=== PATIENT | male | born 1955 | race African-American/Black ===

== ENCOUNTER 2018-11-21 08:11 | Emergency (ER) | payer SELFPAY ==
[~2018-11-21] VITALS: Ht 177.8 cm; Wt 72.6 kg
[2018-11-21 09:10] VITALS: BP 158/98
[2018-11-21] MEDS ORDERED: KETOROLAC TROMETH 60MG/2ML VIAL IM ONE (09:15)
[2018-11-21 09:59] LABS: Urine Bacteria NONE SEEN /hpf (None Seen); Urine Blood Negative /uL (Negative); Urine Mucus FEW (None Seen); Urine Specific Gravity 1.018 (1.001-1.035); Urine WBC 1 /hpf (0 - 3)
== END 2018-11-21 09:57 | disposition home or self-care (01) ==
LOC: ER 08:11 → EDBD 08:11 → ER 09:57
DX: N28.1 Cyst of kidney, acquired (principal); Z86.73 Personal history of transient ischemic attack (TIA), and cerebral infarction without residual deficits
CPT/HCPCS: 72100; 74176; 81001; 96372; 99284; J1885

== ENCOUNTER 2021-03-10 22:00 | Emergency (ER) | payer OTHER, MEDICAID ==
[~2021-03-10] VITALS: Ht 170.2 cm; Wt 54.4 kg
[2021-03-10] MEDS ORDERED: PANTOPRAZOLE 40 MG/10 ML VIAL INJ IV ONE (23:00)
[2021-03-10 23:57] LABS: Basophils # (auto) 0 10 ^3/uL (0-0.2); Basophils % (auto) 0.5 % (0.0-2.0); Eosinophils # (auto) 0 10 ^3/uL (0-0.8); Eosinophils % (auto) 0.6 % (0.0-7.0); Hematocrit 35.6 % (41.0-53.0); Lymphocytes # (auto) 1.4 10 ^3/uL (0.4-5.4); Lymphocytes % (auto) 18.4 % (10.0-50.0); Mean Corpuscular Hemoglobin 27.3 pg (28.0-32.0); Mean Corpuscular Hgb Conc. 33.7 g/dL (32.0-36.0); Mean Corpuscular Volume 81.2 fL (80.0-100.0); Monocytes % (auto) 12.9 % (0.0-12.0); Neutrophils # (auto) 5.3 10 ^3/uL (1.6-8.6); Neutrophils % (auto) 67.6 % (37.0-80.0); Nucleated Red Blood Cells % 0.1 %; Red Blood Cells 4.39 10^6/uL (4.5-5.90); Red Cell Distribution Width 14.2 % (11.8-14.3); White Blood Cell 7.9 10^3/uL (4.4-10.8)
[2021-03-11 00:13] LABS: INR 1.13 (0.9-1.15)
[2021-03-11 00:21] LABS: Albumin 2.6 g/dL (3.4-5.0); Calcium 8.7 mg/dL (8.5-10.1); Magnesium 1.9 mg/dL (1.6-2.6); Potassium 3.8 mmol/L (3.5-5.1)
[2021-03-11 00:32] LABS: BUN/Creatinine Ratio 45.2; Bilirubin, Total 0.3 mg/dL (0.2-1.0); Total Protein 6.8 g/dL (6.4-8.2)
[2021-03-11] MEDS ORDERED: SODIUM CHLORIDE 0.9% 1,000 ML IV ONE (01:00)
[2021-03-11 07:45] VITALS: BP 128/81
== END 2021-03-11 08:06 | disposition home or self-care (01) ==
LOC: ER 22:00 → EDBD 22:00 → EDUNIT# 22:00 → ER 03-11 08:06
DX: K92.2 Gastrointestinal hemorrhage, unspecified (principal); K92.0 Hematemesis; G30.9 Alzheimer's disease, unspecified; F02.80 Dementia in other diseases classified elsewhere, unspecified severity, without behavioral disturbance, psychotic disturbance, mood disturbance, and anxiety; Z20.822 Contact with and (suspected) exposure to COVID-19; Z86.73 Personal history of transient ischemic attack (TIA), and cerebral infarction without residual deficits
CPT/HCPCS: 36415; 80053; 83735; 85025; 85610; 86850; 86900; 86901; 87426; 93005; 96361; 96374; 99285; C9113; J7030

== ENCOUNTER 2022-05-04 05:52 | Emergency (ER) | payer OTHER, MEDICAID ==
[~2022-05-04] VITALS: Ht 165.1 cm; Wt 60.0 kg
[2022-05-04] MEDS ORDERED: ACETAMINOPHEN 500 MG TAB PO ONE (07:30)
[2022-05-04 09:15] VITALS: BP 150/96
[2022-05-04] MEDS ORDERED: CYCL-837 PO (09:22)
== END 2022-05-04 09:30 | disposition home or self-care (01) ==
LOC: ER 05:52 → EDBD 05:52 → ER 09:24
DX: S13.9XXA Sprain of joints and ligaments of unspecified parts of neck, initial encounter (principal); S00.93XA Contusion of unspecified part of head, initial encounter; Z86.73 Personal history of transient ischemic attack (TIA), and cerebral infarction without residual deficits; W01.0XXA Fall on same level from slipping, tripping and stumbling without subsequent striking against object, initial encounter; Y93.89 Activity, other specified; Y92.89 Other specified places as the place of occurrence of the external cause; Y99.8 Other external cause status
CPT/HCPCS: 70450; 72125

== ENCOUNTER 2022-06-06 18:08 | Emergency (ER) | payer OTHER, MEDICAID ==
[~2022-06-06] VITALS: Ht 177.8 cm; Wt 72.0 kg
[~2022-06-06 18:08] MED LIST: CYCL-837 PO
[2022-06-06 20:02] LABS: Basophils # (auto) 0 10 ^3/uL (0-0.2); Eosinophils # (auto) 0.1 10 ^3/uL (0-0.8); Hematocrit 38.3 % (41.0-53.0); Hemoglobin 12.3 g/dL (13.5-17.5); Monocytes # (auto) 0.6 10 ^3/uL (0-1.3); Neutrophils # (auto) 4.8 10 ^3/uL (1.6-8.6); Nucleated Red Blood Cells % 0.1 %
[2022-06-06 20:03] LABS: Basophils % (auto) 0.4 % (0.0-2.0); Eosinophils % (auto) 1.2 % (0.0-7.0); Lymphocytes % (auto) 15.5 % (10.0-50.0); Mean Corpuscular Hemoglobin 26.1 pg (28.0-32.0); Mean Corpuscular Hgb Conc. 32.1 g/dL (32.0-36.0); Mean Corpuscular Volume 81.3 fL (80.0-100.0); Monocytes % (auto) 9.1 % (0.0-12.0); Neutrophils % (auto) 73.8 % (37.0-80.0); Red Blood Cells 4.71 10^6/uL (4.5-5.90); White Blood Cell 6.5 10^3/uL (4.4-10.8)
[2022-06-06 20:29] LABS: Albumin 3.4 g/dL (3.4-5.0); Calcium 9.1 mg/dL (8.5-10.1); Potassium 3.9 mmol/L (3.5-5.1)
[2022-06-06 20:32] LABS: BUN/Creatinine Ratio 15.4; Bilirubin, Total 0.2 mg/dL (0.2-1.0); Total Protein 7.2 g/dL (6.4-8.2)
[2022-06-06 21:55] VITALS: BP 142/98
== END 2022-06-06 22:00 | disposition home or self-care (01) ==
LOC: EDBD 18:08 → ER 18:08
DX: R55 Syncope and collapse (principal); Z79.899 Other long term (current) drug therapy
CPT/HCPCS: 36415; 71045; 80053; 83880; 84484; 85025; 93005